=== PATIENT | female | born 1985 | race African-American/Black ===

== ENCOUNTER 2016-12-18 00:54 | Inpatient (IN) | payer OTHER ==
[~2016-12-18] VITALS: Ht 162.6 cm; Wt 59.4 kg
[2016-12-18] MEDS ORDERED: DEXT 5%/LR + PITOCIN 20UNITS/L 1,000 ML IV SCH ×2 (01:28→04:57)
[2016-12-18] MEDS ORDERED: LACTATED RINGERS 1,000 ML IV SCH (01:28)
[2016-12-18] MEDS ORDERED: METHYLERGONOVINE MALEATE 0.2 MG/ML IM PRN ×2 (01:30→05:00)
[2016-12-18] MEDS ORDERED: LIDOCAINE HCL 1% 20ML VIAL (Pyxis) INJ INFIL NR (01:30)
[2016-12-18] MEDS ORDERED: MISOPROSTOL 100MCG TABLET VG NR (01:30)
[2016-12-18] MEDS ORDERED: CARBOPROST TROMETHAMINE 250 MCG/ML AMPUL IM PRN (01:30)
[2016-12-18] MEDS ORDERED: BUTORPHANOL TARTRATE 2 MG/ML VIAL IV PRN (01:30)
[2016-12-18] MEDS ORDERED: CLINDAMYCIN 900 MG in DEXTROSE 5% WATER 50 ML IV SCH (01:45)
[2016-12-18 02:13] LABS: PARTIAL THROMBOPLASTIN TIME 29.5 sec (24.0-34.0); PROTHROMBIN TIME 10.3 sec
[2016-12-18 02:15] LABS: BASOPHILS % 0.2 % (0.0-2.0); EOSINOPHILS % 0.8 % (0.0-5.0); HEMATOCRIT. 32.1 % (36.0-48.0); HEMOGLOBIN. 11.3 g/dL (12.0-16.0); LYMPHOCYTES % 27.1 % (20.0-50.0); MEAN CORPUSCULAR VOLUME 93.7 fL (81.0-99.0); MEAN PLATELET VOLUME 8.4 fl (7.4-10.4); MONOCYTES % 6.2 % (2.0-8.0); NEUTROPHILS % 65.7 % (40.0-76.0); PLATELET 223 x1000/uL (130-400); RED BLOOD CELL COUNT 3.42 mill/uL (4.2-5.4); RED CELL DISTRIBUTION WIDTH 13.7 % (11.6-14.6)
[2016-12-18 02:19] LABS: CLARITY URINE CLEAR (CLEAR); COLOR URINE YELLOW (YELLOW); GLUCOSE URINE NEGATIVE (NEGATIVE); KETONES URINE NEGATIVE (NEGATIVE); LEUKOCYTE ESTERASE URINE TRACE (NEGATIVE); NITRITE URINE NEGATIVE (NEGATIVE); OCCULT BLOOD URINE 3+ (NEGATIVE); PH URINE 7.5 (4.5-8.0); PROTEIN URINE NEGATIVE (NEGATIVE); SPECIFIC GRAVITY URINE 1.006 (1.005-1.030); UROBILINOGEN URINE 0.2 E.U./dL (0.2-1.0)
[2016-12-18 02:29] LABS: CARBON DIOXIDE 25 mEq/L (21-32); CHLORIDE 107 mEq/L (98-107)
[2016-12-18] MEDS ORDERED: BUPIVACAINE HCL/PF 0.25% (2.5MG/ML) 10ML ONE (03:16)
[2016-12-18 03:18] LABS: *AMPHETAMINES SCREEN URINE NEGATIVE (NEGATIVE); *BARBITURATES SCREEN URINE NEGATIVE (NEGATIVE); *BENZODIAZEPINES SCREEN URINE NEGATIVE (NEGATIVE); *COCAINE SCREEN URINE NEGATIVE (NEGATIVE); CANNABINOID URINE SCREEN NEGATIVE (NEGATIVE); METHADONE URINE SCREEN NEGATIVE (NEGATIVE); OPIATES URINE SCREEN NEGATIVE (NEGATIVE); PHENCYCLIDINE URINE SCREEN NEGATIVE (NEGATIVE)
[2016-12-18] MEDS ORDERED: FENTANYL CITRATE/PF 50MCG/ML 2ML VIAL ONE (03:21)
[2016-12-18] MEDS ORDERED: BUPIVACAINE HCL/NS/PF EPIDURAL 100 ML EP ONE (03:36)
[2016-12-18] MEDS ORDERED: BUPIVACAINE HCL/NS/PF EPIDURAL 100 ML EP SCH (03:45)
[2016-12-18] MEDS ORDERED: RHO(D) IMMUNE GLOBULIN 300 MCG/SYR IM PRN (05:00)
[2016-12-18] MEDS ORDERED: LANOLIN OINT 0.25 GM TUBE TOP PRN (05:00)
[2016-12-18] MEDS ORDERED: IBUPROFEN 400MG TABLET PO PRN (05:00)
[2016-12-18 05:55] VITALS: BP 102/70
[2016-12-18 06:25] VITALS: BP 128/78
[2016-12-18 07:55] LABS: HEPATITIS B SURFACE ANTIGEN NEGATIVE; RUBELLA IGG 61.7 IU/mL (4.99-10)
[2016-12-18] MEDS ORDERED: PARO30TA76 PO (07:55)
[2016-12-18] MEDS ORDERED: GABA-531 PO (07:55)
[2016-12-18] MEDS ORDERED: FERR-63 PO (07:55)
[2016-12-18] MEDS ORDERED: PREN-88 PO (07:55)
[2016-12-18] MEDS ORDERED: FOLI-43 PO (07:55)
[2016-12-18] MEDS: GABAPENTIN 300MG CAPSULE PO SCH ×3 (08:25→23:45)
[2016-12-18] MEDS: PAROXETINE HCL 20MG TABLET PO SCH (08:25)
[2016-12-18] MEDS: IBUPROFEN 800MG TABLET PO PRN ×3 (08:25→23:50)
[2016-12-18 16:26] VITALS: BP 108/76
[2016-12-18 20:15] VITALS: BP 107/57
[2016-12-18] MEDS ORDERED: GUAIFENESIN 200MG/10ML SUGAR FREE UDC PO PRN (21:45)
[2016-12-18 23:45] VITALS: BP 104/48
[2016-12-19 06:20] VITALS: BP 98/62
[2016-12-19 06:20] LABS: BASOPHILS % 0.4 % (0.0-2.0); HEMATOCRIT. 24.1 % (36.0-48.0); HEMOGLOBIN. 8.6 g/dL (12.0-16.0); LYMPHOCYTES % 23.5 % (20.0-50.0); MEAN CORPUSCULAR VOLUME 92.2 fL (81.0-99.0); MEAN PLATELET VOLUME 8.1 fl (7.4-10.4); MONOCYTES % 5.5 % (2.0-8.0); NEUTROPHILS % 69.6 % (40.0-76.0); PLATELET 181 x1000/uL (130-400); RED BLOOD CELL COUNT 2.61 mill/uL (4.2-5.4); RED CELL DISTRIBUTION WIDTH 13.9 % (11.6-14.6)
[2016-12-19] MEDS: IBUPROFEN 800MG TABLET PO PRN ×2 (06:25→18:03)
[2016-12-19] MEDS: GABAPENTIN 300MG CAPSULE PO SCH ×3 (06:25→22:06)
[2016-12-19 07:20] VITALS: BP 102/65
[2016-12-19] MEDS: PAROXETINE HCL 20MG TABLET PO SCH (08:28)
[2016-12-19] MEDS: PRENATAL VIT/FE FUMARATE/FA TABLET PO SCH (08:28)
[2016-12-19] MEDS ORDERED: MEDROXYPROGESTERONE ACETATE 150MG/ML VIAL IM NR (13:15)
[2016-12-19] MEDS ORDERED: BENZOCAINE/LANOLIN/ALOE VERA SPRAY TOP PRN (13:45)
[2016-12-19 16:00] VITALS: BP 128/78
[2016-12-19 21:00] VITALS: BP 108/60
[2016-12-20] MEDS: IBUPROFEN 800MG TABLET PO PRN ×2 (00:11→08:16)
[2016-12-20] MEDS: GABAPENTIN 300MG CAPSULE PO SCH (06:27)
[2016-12-20 07:43] VITALS: BP 96/60
[2016-12-20] MEDS: PRENATAL VIT/FE FUMARATE/FA TABLET PO SCH (08:16)
[2016-12-20] MEDS: PAROXETINE HCL 20MG TABLET PO SCH (08:16)
== END 2016-12-20 10:55 | disposition home or self-care (01) | DRG 560 ==
LOC: OBSVTOIN 00:54 → L&D 00:54 → 7EST PP/OB 05:47
PROVIDERS: ADMIT Obstetrics & Gynecology; ATTEND Obstetrics & Gynecology
PROC: 00HU33Z Insertion of Infusion Device into Spinal Canal, Percutaneous Approach (ICD-10-PCS; 2016-12-18)
PROC: 3E0R3CZ (ICD-10-PCS; 2016-12-18)
PROC: 10E0XZZ Delivery of Products of Conception, External Approach (ICD-10-PCS; principal; 2016-12-18 14:14)
DX: O99.354 Diseases of the nervous system complicating childbirth (principal); M41.9 Scoliosis, unspecified; O99.02 Anemia complicating childbirth; O99.344 Other mental disorders complicating childbirth; O75.89 Other specified complications of labor and delivery; G40.909 Epilepsy, unspecified, not intractable, without status epilepticus; J42 Unspecified chronic bronchitis; D64.9 Anemia, unspecified; O99.52 Diseases of the respiratory system complicating childbirth; Z37.0 Single live birth; Z3A.40 40 weeks gestation of pregnancy; Z88.0 Allergy status to penicillin
CPT/HCPCS: 36415; 80053; 80305; 81001; 85025; 85610; 85730; 86592; 86703; 86762; 86850; 86900; 87340; J0595; J1050; J2590; J3010; J3490; J7060; J7120; A4315